=== PATIENT | male | born 1975 | race Caucasian/White ===

== ENCOUNTER 2018-12-28 08:59 | Observation (INO) | payer OTHER ==
[2018-12-28] MEDS ORDERED: Sodium Chloride 0.9% 1,000 ML IV ONE (09:06)
--- NOTE | 2018-12-28 09:33 | CT ---
Indication: numbness left side of face, arm and leg since yesterday. No history of stoke or TIA Technique: CT of the head without contrast. Coronal and sagittal reformats. Bone and soft tissue windows. Comparison: No prior studies available for comparison at this institution. Findings: There is a 2.4 x 1.3 cm focus of hypoattenuation in the right frontal centrum semiovale which is indeterminate differential considerations including ischemia or demyelinating insult (image 40 series 201). MRI without contrast is recommended for further evaluation No acute intracranial hemorrhage or extra-axial collection. No mass effect or midline shift. Normal cerebral volume. The ventricles are normal in size, shape and contour. Incidental left retrocerebellar arachnoid cyst. The orbital contents are normal. No calvarial fractures. No lytic or sclerotic osseous lesions within the calvarium or skull base. Scalp and other imaged soft tissue structures are normal. Mastoid air cells are clear. Paranasal sinuses are well aerated. Findings discussed with Dr. Vega at 9:30 am. Impression: 1. There is a 2.4 x 1.3 cm focus of hypoattenuation in the right frontal centrum semiovale which is indeterminate differential considerations including ischemia or demyelinating insult. MRI without contrast is recommended for further evaluation. 2. Incidental left retrocerebellar arachnoid cyst. Please note that all CT scans at this facility use dose modulation, iterative reconstruction, and/or weight-based dosing when appropriate to reduce radiation dose to as low as reasonably achievable. Dictated by Chapito Bruce MD @ Dec 28 2018 9:26AM Signed by Dr. Chapito Bruce @ Dec 28 2018 9:31AM
[2018-12-28] MEDS ORDERED: Aspirin 325 MG Tab PO ONE (09:40)
[2018-12-28 09:53] LABS: BLOOD UREA NITROGEN,BUN 24 mg/dL (7.0-18.0); CARBON DIOXIDE,CO2 23.2 mmol/L (21.0-32.0); CHLORIDE,CL 103 mmol/L (98-107); GLUCOSE RANDOM 158 mg/dL (74-106); POTASSIUM,K 3.8 mmol/L (3.5-5.1); SODIUM,NA 137 mmol/L (136-148)
--- NOTE | 2018-12-28 10:08 | EDM.PDOC ---
ED HPI GENERAL MEDICAL PROBLEM - General Chief Complaint: Neuro Symptoms/Deficits Stated Complaint: PT FEELS NUMBNESS ON LT SIDE OF CHEST Time Seen by Provider: 12/28/18 10:06 Source of Information: Reports: Patient - History of Present Illness INITIAL COMMENTS - FREE TEXT/NARRATIVE: HISTORY AND PHYSICAL: History of present illness: []Patient presents with left-sided numbness as well as weakness in the foot and lower extremity, plantar flexion is weak compared to right as well as his leg drifts somewhat laterally otherwise no other motor deficit appreciated sensory is intact however the patient feels numbness/paresthesia Symptoms began on Sunday he has no fever nausea vomiting chills sweats no chest pain shortness breath headache dizziness palpitation no bowel or urine symptoms Review of systems: As per history of present illness and below otherwise all systems reviewed and negative. Past medical history: As per history of present illness and as reviewed below otherwise noncontributory. Surgical history: As per history of present illness and as reviewed below otherwise noncontributory. Social history: No reported history of drug or alcohol abuse. Family history: As per history of present illness and as reviewed below otherwise noncontributory. Physical exam: HEENT: Atraumatic, normocephalic, pupils reactive, negative for conjunctival pallor or scleral icterus, mucous membranes moist, throat clear, neck supple, nontender, trachea midline. Lungs: Clear to auscultation, breath sounds equal bilaterally, chest nontender. Heart: S1S2, regular, negative for clicks, rubs, or JVD. Abdomen: Soft, nondistended, nontender. Negative for masses or hepatosplenomegaly. Negative for costovertebral tenderness. Pelvis: Stable nontender. Genitourinary: Deferred. Rectal: Deferred. Extremities: Atraumatic, negative for cords or calf pain. Neurovascular unremarkable. Neuro: Awake, alert, oriented. Cranial nerves II through XII unremarkable. Cerebellum unremarkable. Motor and sensory unremarkable throughout. Exam nonfocal. Diagnostics: [ P troponin INR UA EKG Chest [address] no contrast ] Therapeutics: [ will saline Aspirin Patient discussed in detail with Dr. Mancera, he will complete MRI and stroke workup ] Impression: [ right frontal lesion 2 cm x 1 cm ] Definitive disposition and diagnosis as appropriate pending reevaluation and review of above. Left Shoulder Pain Score (Numeric/FACES): 2 - Related Data Allergies Allergy/AdvReac Type Severity Reaction Status Date / Time No Known Allergies Allergy Verified 12/28/18 09:16 Home Meds: Home Meds Omeprazole 40 mg PO DAILY 12/28/18 [History] buPROPion [Wellbutrin] 450 mg PO DAILY 12/28/18 [History] traZODone HCl [Trazodone HCl] 100 mg PO BEDTIME 12/28/18 [History] Past Medical History Gastrointestinal History: Reports: GERD Psychiatric History: Reports: PTSD - Infectious Disease History Infectious Disease History: Reports: Chicken Pox - Past Surgical History HEENT Surgical History: Reports: Tonsillectomy Dermatological Surgical History: Reports: Other (See Below) Social & Family History - Family History Family Medical History: Noncontributory - Tobacco Use Smoking Status *Q: Current Every Day Smoker Years of Tobacco use: 24 Packs/Tins Daily: 1 - Caffeine Use Caffeine Use: Reports: Energy Drinks - Recreational Drug Use Recreational Drug Use: No ED ROS GENERAL - Review of Systems Review Of Systems: See Below ED EXAM, GENERAL - Physical Exam Exam: See Below Course - Vital Signs Last Recorded V/S: Last Vital Signs Temp 97.2 F 12/28/18 09:18 Pulse 69 12/28/18 09:45 Resp 16 12/28/18 09:45 BP 128/86 12/28/18 09:45 Pulse Ox 97 12/28/18 09:45 - Orders/Labs/Meds Orders: Active Orders 24 hr Category Date Time Status EKG Documentation Completion [RC] STAT Care 12/28/18 09:06 Active UA RFX YOVANI AND CULT IF INDIC [URIN] Stat Lab 12/28/18 09:06 Ordered Labs: Laboratory Tests 12/28/18 12/28/18 12/28/18 Range/Units 09:20 09:20 09:20 WBC 10.55 (4.0-11.0) K/uL RBC 5.47 (4.50-5.90) M/uL Hgb 16.9 (13.0-17.0) g/dL Hct 46.8 (38.0-50.0) % MCV 85.6 (80.0-98.0) fL MCH 30.9 (27.0-32.0) pg MCHC 36.1 (31.0-37.0) g/dL RDW Std Deviation 41.8 (28.0-62.0) fl RDW Coeff of Cheryl 13 (11.0-15.0) % Plt Count 241 (150-400) K/uL MPV 9.50 (7.40-12.00) fL Neut % (Auto) 67.3 (48.0-80.0) % Lymph % (Auto) 20.9 (16.0-40.0) % [place] % (Auto) 10.3 (0.0-15.0) % Eos % (Auto) 1.4 (0.0-7.0) % Baso % (Auto) 0.1 (0.0-1.5) % Neut # (Auto) 7.1 H (1.4-5.7) K/uL Lymph # (Auto) 2.2 (0.6-2.4) K/uL [place] # (Auto) 1.1 H (0.0-0.8) K/uL Eos # (Auto) 0.2 (0.0-0.7) K/uL Baso # (Auto) 0.0 (0.0-0.1) K/uL Nucleated RBC % 0.0 /100WBC Nucleated RBCs # 0 K/uL INR 0.95 Sodium 137 (136-148) mmol/L Potassium 3.8 (3.5-5.1) mmol/L Chloride 103 (98-107) mmol/L Carbon Dioxide 23.2 (21.0-32.0) mmol/L BUN 24 H (7.0-18.0) mg/dL Creatinine 0.9 (0.8-1.3) mg/dL Est Cr Clr Drug Dosing 112.72 mL/min Estimated GFR (MDRD) > 60.0 ml/min Glucose 158 H (74-106) mg/dL Calcium 8.0 L (8.5-10.1) mg/dL Total Bilirubin 0.4 (0.2-1.0) mg/dL AST 33 (15-37) IU/L ALT 60 (14-63) IU/L Alkaline Phosphatase 100 (46-116) U/L Troponin I < 0.050 (0.000-0.056) ng/mL Total Protein 7.4 (6.4-8.2) g/dL Albumin 3.6 (3.4-5.0) g/dL Globulin 3.8 (2.6-4.0) g/dL Albumin/Globulin Ratio 0.9 (0.9-1.6) Meds: Medications Discontinued Medications Generic Name Dose Route Start Last Admin Trade Name Calixto PRN Reason Stop Dose Admin Aspirin 325 mg 12/28/18 09:40 12/28/18 09:48 Aspirin PO 12/28/18 09:41 325 mg ONETIME ONE Administration Sodium Chloride 1,000 mls @ 999 mls/hr 12/28/18 09:06 12/28/18 09:28 Normal Saline IV 12/28/18 10:06 999 mls/hr STAT ONE Administration Departure - Departure Time of Disposition: 10:08 Disposition: Refer to Observation Condition: Fair Clinical Impression: Brain lesion - Discharge Information - My Orders Last 24 Hours: My Active Orders 12/28/18 09:06 EKG Documentation Completion [RC] STAT UA RFX YOVANI AND CULT IF INDIC [URIN] Stat - Assessment/Plan Last 24 Hours: My Active Orders 12/28/18 09:06 EKG Documentation Completion [RC] STAT UA RFX YOVANI AND CULT IF INDIC [URIN] Stat
[2018-12-28] MEDS ORDERED: oxyCODONE 5 MG Tab PO PRN (10:58)
[2018-12-28] MEDS ORDERED: Temazepam 15 MG Cap PO PRN (10:58)
[2018-12-28] MEDS ORDERED: Ondansetron 4 MG Tab.DIS PO PRN (10:58)
[2018-12-28] MEDS ORDERED: Docusate Sodium 100 MG Cap PO PRN (10:58)
--- NOTE | 2018-12-28 11:06 | PCM.HP.2 ---
H&P History of Present Illness - General Date of Service: 12/28/18 Admit Problem/Dx: Admission Diagnosis/Problem Admission Diagnosis/Problem Lesion of brain, weakness left side, numbness and tingling, admitted as a stroke code. Source of Information: Patient History Limitations: Reports: No Limitations - History of Present Illness Initial Comments - Free Text/Narative: The patient is a 43-year-old gentleman who recently came to the area from [place] for employment. The patient was admitted to the emergency department as a stroke code. On Sunday 5 days ago the patient started to develop numbness and tingling of his left hand with inability to firmly grasp objects stools. He also has some numbness, tingling of his left leg as well. The patient has been otherwise healthy and he does not take any medications chronically. The patient does smoke. The patient says that his symptoms have not resolved. He has denied any pain. He's had no specific aggravating or relieving factors. CT scan obtained today showed a 2.4 x 1.3 cm foci of hypoattenuation in the right frontal centrum and was recommended to have a MRI. Onset of Symptoms: Reports: Gradual Duration of Symptoms: Reports: Day(s):, Constant Location: Reports: Generalized Severity: Mild Improves with: Reports: None Worsens with: Reports: None Context: Reports: Travel Left Shoulder Pain Score (Numeric/FACES): 2 - Related Data Allergies/Adverse Reactions: Allergies Allergy/AdvReac Type Severity Reaction Status Date / Time No Known Allergies Allergy Verified 12/28/18 09:16 Home Medications: Home Meds Omeprazole 40 mg PO DAILY 12/28/18 [History] buPROPion [Wellbutrin] 450 mg PO DAILY 12/28/18 [History] traZODone HCl [Trazodone HCl] 100 mg PO BEDTIME 12/28/18 [History] Past Medical History HEENT History: Reports: None Cardiovascular History: Reports: None Respiratory History: Reports: None Gastrointestinal History: Reports: GERD Genitourinary History: Reports: None Musculoskeletal History: Reports: None Neurological History: Reports: None Psychiatric History: Reports: Anxiety, PTSD Endocrine/Metabolic History: Reports: None Hematologic History: Reports: None Immunologic History: Reports: None Oncologic (Cancer) History: Reports: None Dermatologic History: Reports: None - Infectious Disease History Infectious Disease History: Reports: Chicken Pox - Past Surgical History HEENT Surgical History: Reports: Tonsillectomy Dermatological Surgical History: Reports: Other (See Below) Social & Family History - Family History Family Medical History: Noncontributory - Tobacco Use Smoking Status *Q: Current Every Day Smoker Years of Tobacco use: 24 Packs/Tins Daily: 1 - Caffeine Use Caffeine Use: Reports: Energy Drinks - Recreational Drug Use Recreational Drug Use: No - Living Situation & Occupation Living situation: Reports: Occupation: Employed H&P Review of Systems - Review of Systems: Review Of Systems: See Below General: Reports: No Symptoms HEENT: Reports: No Symptoms Pulmonary: Reports: No Symptoms Cardiovascular: Reports: No Symptoms Gastrointestinal: Reports: No Symptoms Genitourinary: Reports: No Symptoms Musculoskeletal: Reports: No Symptoms Skin: Reports: No Symptoms Psychiatric: Reports: No Symptoms Neurological: Reports: Numbness, Paresthesia, Tingling, Difficulty Walking, Weakness. Denies: Change in Speech Hematologic/Lymphatic: Reports: No Symptoms Immunologic: Reports: No Symptoms Exam - Exam Exam: See Below - Vital Signs Vital Signs: Last Vital Signs Temp 36.2 C 12/28/18 09:18 Pulse 74 12/28/18 10:39 Resp 16 12/28/18 09:45 BP 125/70 12/28/18 10:39 Pulse Ox 98 12/28/18 10:39 Weight: 130.8 kg - Exam Quality Assessment: Supplemental Oxygen General: Alert, Oriented, Cooperative HEENT: Conjunctiva Clear, EACs Clear, EOMI, Mucosa Moist & [place], Pupils Equal, PERRLA Neck: Supple, Trachea Midline Lungs: Clear to Auscultation, Normal Respiratory Effort Cardiovascular: Regular Rate, Regular Rhythm GI/Abdominal Exam: Normal Bowel Sounds, Soft, No Distention Back Exam: Normal Inspection, Full Range of Motion Extremities: Normal Inspection, No Pedal Edema Skin: Warm, Dry, Intact Neurological: Cranial Nerves Intact, Reflexes Equal Bilateral, Normal Speech, Normal Tone. No: Strength Equal Bilateral (Weakness predominantly left side, left lower leg), Normal Gait Neuro Extensive - Mental Status: Alert, Oriented x3, Normal Mood/Affect, Memory Intact Psychiatric: Alert, Normal Affect, Normal Mood - Patient Data Lab Results Last 24 hrs: Laboratory Results - last 24 hr 12/28/18 12/28/18 12/28/18 Range/Units 09:20 09:20 09:20 WBC 10.55 (4.0-11.0) K/uL RBC 5.47 (4.50-5.90) M/uL Hgb 16.9 (13.0-17.0) g/dL Hct 46.8 (38.0-50.0) % MCV 85.6 (80.0-98.0) fL MCH 30.9 (27.0-32.0) pg MCHC 36.1 (31.0-37.0) g/dL RDW Std Deviation 41.8 (28.0-62.0) fl RDW Coeff of Cheryl 13 (11.0-15.0) % Plt Count 241 (150-400) K/uL MPV 9.50 (7.40-12.00) fL Neut % (Auto) 67.3 (48.0-80.0) % Lymph % (Auto) 20.9 (16.0-40.0) % [place] % (Auto) 10.3 (0.0-15.0) % Eos % (Auto) 1.4 (0.0-7.0) % Baso % (Auto) 0.1 (0.0-1.5) % Neut # (Auto) 7.1 H (1.4-5.7) K/uL Lymph # (Auto) 2.2 (0.6-2.4) K/uL [place] # (Auto) 1.1 H (0.0-0.8) K/uL Eos # (Auto) 0.2 (0.0-0.7) K/uL Baso # (Auto) 0.0 (0.0-0.1) K/uL Nucleated RBC % 0.0 /100WBC Nucleated RBCs # 0 K/uL INR 0.95 Sodium 137 (136-148) mmol/L Potassium 3.8 (3.5-5.1) mmol/L Chloride 103 (98-107) mmol/L Carbon Dioxide 23.2 (21.0-32.0) mmol/L BUN 24 H (7.0-18.0) mg/dL Creatinine 0.9 (0.8-1.3) mg/dL Est Cr Clr Drug Dosing 112.72 mL/min Estimated GFR (MDRD) > 60.0 ml/min Glucose 158 H (74-106) mg/dL Calcium 8.0 L (8.5-10.1) mg/dL Total Bilirubin 0.4 (0.2-1.0) mg/dL AST 33 (15-37) IU/L ALT 60 (14-63) IU/L Alkaline Phosphatase 100 (46-116) U/L Troponin I < 0.050 (0.000-0.056) ng/mL Total Protein 7.4 (6.4-8.2) g/dL Albumin 3.6 (3.4-5.0) g/dL Globulin 3.8 (2.6-4.0) g/dL Albumin/Globulin Ratio 0.9 (0.9-1.6) Triglycerides (0-200) mg/dL Cholesterol (50-200) mg/dL LDL Cholesterol, Calc (60-180) mg/dL VLDL Cholesterol (5-55) mg/dL HDL Cholesterol (40-60) mg/dL Cholesterol/HDL Ratio (3.3-6.0) Urine Color Urine Appearance Urine pH (5.0-8.0) Ur Specific [place] (1.001-1.035) Urine Protein (NEGATIVE) mg/dL Urine Glucose (UA) (NEGATIVE) mg/dL Urine Ketones (NEGATIVE) mg/dL Urine Occult Blood (NEGATIVE) Urine Nitrite (NEGATIVE) Urine Bilirubin (NEGATIVE) Urine Urobilinogen (<2.0) EU/dL Ur Leukocyte Esterase (NEGATIVE) 12/28/18 12/28/18 Range/Units 09:20 10:55 WBC (4.0-11.0) K/uL RBC (4.50-5.90) M/uL Hgb (13.0-17.0) g/dL Hct (38.0-50.0) % MCV (80.0-98.0) fL MCH (27.0-32.0) pg MCHC (31.0-37.0) g/dL RDW Std Deviation (28.0-62.0) fl RDW Coeff of Cheryl (11.0-15.0) % Plt Count (150-400) K/uL MPV (7.40-12.00) fL Neut % (Auto) (48.0-80.0) % Lymph % (Auto) (16.0-40.0) % [place] % (Auto) (0.0-15.0) % Eos % (Auto) (0.0-7.0) % Baso % (Auto) (0.0-1.5) % Neut # (Auto) (1.4-5.7) K/uL Lymph # (Auto) (0.6-2.4) K/uL [place] # (Auto) (0.0-0.8) K/uL Eos # (Auto) (0.0-0.7) K/uL Baso # (Auto) (0.0-0.1) K/uL Nucleated RBC % /100WBC Nucleated RBCs # K/uL INR Sodium (136-148) mmol/L Potassium (3.5-5.1) mmol/L Chloride (98-107) mmol/L Carbon Dioxide (21.0-32.0) mmol/L BUN (7.0-18.0) mg/dL Creatinine (0.8-1.3) mg/dL Est Cr Clr Drug Dosing mL/min Estimated GFR (MDRD) ml/min Glucose (74-106) mg/dL Calcium (8.5-10.1) mg/dL Total Bilirubin (0.2-1.0) mg/dL AST (15-37) IU/L ALT (14-63) IU/L Alkaline Phosphatase (46-116) U/L Troponin I (0.000-0.056) ng/mL Total Protein (6.4-8.2) g/dL Albumin (3.4-5.0) g/dL Globulin (2.6-4.0) g/dL Albumin/Globulin Ratio (0.9-1.6) Triglycerides 253 H (0-200) mg/dL Cholesterol 153 (50-200) mg/dL LDL Cholesterol, Calc 72 (60-180) mg/dL VLDL Cholesterol 50 (5-55) mg/dL HDL Cholesterol 30 L (40-60) mg/dL Cholesterol/HDL Ratio 5.1 (3.3-6.0) Urine Color YELLOW Urine Appearance CLEAR Urine pH 6.5 (5.0-8.0) Ur Specific [place] 1.015 (1.001-1.035) Urine Protein NEGATIVE (NEGATIVE) mg/dL Urine Glucose (UA) NEGATIVE (NEGATIVE) mg/dL Urine Ketones NEGATIVE (NEGATIVE) mg/dL Urine Occult Blood NEGATIVE (NEGATIVE) Urine Nitrite NEGATIVE (NEGATIVE) Urine Bilirubin NEGATIVE (NEGATIVE) Urine Urobilinogen 0.2 (<2.0) EU/dL Ur Leukocyte Esterase NEGATIVE (NEGATIVE) Result Diagrams: 12/28/18 09:20 12/28/18 09:20 - Problem List (1) Stroke due to embolism SNOMED Code(s): 886624410 ICD Code: I63.9 - CEREBRAL INFARCTION, UNSPECIFIED Status: Acute Priority : High Current Visit: Yes Qualifiers: Precerebral and cerebral artery: anterior cerebral artery Laterality of affected vessel: right Qualified Code(s): I63.421 - Cerebral infarction due to embolism of right anterior cerebral artery (2) Depression SNOMED Code(s): 10972245 ICD Code: F32.9 - MAJOR DEPRESSIVE DISORDER, SINGLE EPISODE, UNSPECIFIED Status: Chronic Priority: High Current Visit: Yes Qualifiers: Depression Type: major depressive disorder Major depression recurrence: recurrent Active/Remission status: in partial remission Qualified Code(s): F33.41 - Major depressive disorder, recurrent, in partial remission (3) PTSD (post-traumatic stress disorder) SNOMED Code(s): 54050337 ICD Code: F43.10 - POST-TRAUMATIC STRESS DISORDER, UNSPECIFIED Status: Chronic Priority: High Current Visit: Yes (4) Anxiety SNOMED Code(s): 08972327 ICD Code: F41.9 - ANXIETY DISORDER, UNSPECIFIED Status: Chronic Priority : High Current Visit: Yes (5) Morbid obesity with BMI of 40.0-44.9, adult SNOMED Code(s): 742007537, 71399996182915 ICD Code: E66.01 - MORBID (SEVERE) OBESITY DUE TO EXCESS CALORIES; Z68.41 - BODY MASS INDEX (BMI) 40.0-44.9, ADULT Status: Chronic Priority: High Current Visit: Yes (6) Hypertriglyceridemia SNOMED Code(s): 610626458 ICD Code: E78.1 - PURE HYPERGLYCERIDEMIA Status: Chronic Priority: High Current Visit: Yes (7) Brain lesion SNOMED Code(s): 781728368 ICD Code: G93.9 - DISORDER OF BRAIN, UNSPECIFIED Status: Chronic Priority : High Current Visit: Yes Problem List Initiated/Reviewed/Updated: Yes Orders Last 24hrs: Active Orders 24 hr Category Date Time Status Admission Status [Patient Status] [ADT] Stat ADT 12/28/18 10:09 Active Cardiac Monitoring [RC] CONTINUOUS Care 12/28/18 10:59 Ordered Oxygen Therapy [RC] PRN Care 12/28/18 10:59 Ordered Up With Assistance [RC] ASDIRECTED Care 12/28/18 10:58 Ordered VTE/DVT Education [RC] PER UNIT ROUTINE Care 12/28/18 10:59 Ordered Vital Signs [RC] Q4H Care 12/28/18 10:59 Ordered OT Evaluation and Treatment [CONS] Routine Cons 12/28/18 10:58 Ordered PT Evaluation and Treatment [CONS] Routine Cons 12/28/18 10:58 Ordered Heart Healthy Diet [DIET] Diet 12/28/18 Lunch Ordered Brain wo Cont [MR] Stat Exams 12/28/18 10:10 Ordered CBC WITH AUTO DIFF [HEME] AM Lab 12/29/18 05:11 Ordered COMPREHENSIVE METABOLIC PN,CMP [CHEM] AM Lab 12/29/18 05:11 Ordered Acetaminophen [Tylenol] Med 12/28/18 10:58 Ordered 650 mg PO Q4H PRN Docusate Sodium [Colace] Med 12/28/18 10:58 Ordered 100 mg PO BID PRN Heparin Sodium Med 12/28/18 11:00 Ordered 5,000 units SUBCUT Q8H Nicotine [Habitrol] Med 12/28/18 11:00 Ordered 14 mg TRDERM DAILY Omeprazole Med 12/29/18 09:00 Ordered 40 mg PO DAILY Ondansetron [Zofran ODT] Med 12/28/18 10:58 Ordered 4 mg PO Q4H PRN Temazepam [Restoril] Med 12/28/18 10:58 Ordered 15 mg PO BEDTIME PRN atorvaSTATin [Lipitor] Med 12/28/18 21:00 Ordered 20 mg PO BEDTIME buPROPion [Wellbutrin] Med 12/29/18 09:00 Ordered 450 mg PO DAILY oxyCODONE Med 12/28/18 10:58 Ordered 5 mg PO Q4H PRN traZODone HCl [Trazodone HCl] Med 12/28/18 21:00 Ordered 100 mg PO BEDTIME Resuscitation Status Routine Resus Stat 12/28/18 10:58 Ordered Medication Orders Acetaminophen (Tylenol) 650 mg PO Q4H PRN PRN Reason: Pain (Mild 1-3)/fever Atorvastatin Calcium (Lipitor) 20 mg PO BEDTIME [facility] Bupropion HCl (Wellbutrin) 450 mg PO DAILY [facility] Docusate Sodium (Colace) 100 mg PO BID PRN PRN Reason: Constipation Heparin Sodium (Porcine) (Heparin Sodium) 5,000 units SUBCUT Q8H [facility] Nicotine (Habitrol) 14 mg TRDERM DAILY [facility] Omeprazole (Omeprazole) 40 mg PO DAILY [facility] Ondansetron HCl (Zofran Odt) 4 mg PO Q4H PRN PRN Reason: nausea, able to take PO Oxycodone HCl (Oxycodone) 5 mg PO Q4H PRN PRN Reason: Pain (moderate 4-6) Trazodone HCl (Trazodone) 100 mg PO BEDTIME [facility] Assessment/Plan Comment:: The patient is a 43-year-old gentleman who had been admitted secondary to stroke as noted on the CT scan. MRI was obtained which showed hyperintense signal on T2 which was consistent with demyelination. This was in the right posterior frontal lobe predominantly for acute demyelinating disease. The patient had no intracranial hemorrhage or hydrocephalus. The patient had been admitted secondary to a stroke code and as a result of this the patient will be started on atorvastatin 20 mg by mouth at bedtime, physical therapy/ occupational therapy has been ordered. The patient will also be kept on antiplatelet drug. I had a discussion with the patient in the emergency department that this will likely require treatment more geared towards prevention. The patient will also have permissive hypertension to keep his systolic blood pressure between 150-160 mmHg. The patient will also have neuro checks every 4 hours. Troponins of also been ordered 2. The patient will have activity as tolerated. I've also kept patient on telemetry. The patient will be provided anticoagulation with the use of heparin. The patient also has a history of PTSD as well as anxiety and I have continued the patient on his Seroquel and trazodone. The patient will be evaluated in the morning and possibly discharged with recommendations to follow-up with his primary care physician in [place]. - Mortality Measure Prognosis:: Good
--- NOTE | 2018-12-28 11:50 | MR ---
Indication: Hypodense lesion right frontal lobe on CT. Technique: Noncontrast sagittal T1, axial FLAIR, T2 turbo spine echo, and diffusion weighted images. Supplemental post contrast T1 weighted axial and coronal sequences are provided after administration of gadolinium-based IV contrast. Comparison: CT 12/1918 Findings: There is a 1.8 x 1.7 cm focus of concentric T2 prolongation and diffusion restriction in the right frontal periventricular/subcortical white matter that abuts the right precentral gyrus subcortical white matter. This demonstrates incomplete rim of enhancement no midline shift. No hydrocephalus. A few small discrete foci of T2 prolongation are present in the subcortical white matter, nonspecific but most commonly noted in the setting of migraines, hypertension, diabetes, or collagen vascular disease. Expected intracranial vascular flow voids are preserved. The orbits, paranasal sinuses, mastoid air cells are clear. Incidental small left retrocerebellar arachnoid cyst. Impression: 1. There is a 1.8 x 1.7 cm focus of concentric T2 prolongation and diffusion restriction in the right frontal periventricular/subcortical white matter that abuts the right precentral gyrus subcortical white matter. This demonstrates incomplete rim of enhancement and is most consistent for demyelinating lesion such as multiple sclerosis. The noncontrast appearance suggests Balo`s concentric sclerosis. 2. A few small discrete foci of T2 prolongation are present in the subcortical white matter, nonspecific but most commonly noted in the setting of migraines, hypertension, diabetes, or collagen vascular disease. 3. Incidental small left retrocerebellar arachnoid cyst Dictated by Chapito Bruce MD @ Dec 28 2018 12:11PM Signed by Dr. Chapito Bruce @ Dec 28 2018 1:31PM
[2018-12-28] MEDS: Heparin Sodium 5,000 Units/ML Vial SUBCUT SCH ×2 (11:57→18:07)
[2018-12-28] MEDS: Nicotine 14 MG/24 Hr Patch TRDERM SCH (11:57)
[2018-12-28] MEDS ORDERED: Gadobenate Dimeglumine 529 MG/ML 20 ML SDV IVPUSH STA (12:41)
[2018-12-28] MEDS: Acetaminophen 325 MG Tab PO PRN (18:08)
[2018-12-28] MEDS ORDERED: atorvaSTATin 20 MG Tab PO SCH (21:00)
[2018-12-28] MEDS ORDERED: traZODone 50 MG Tab PO SCH (21:00)
[2018-12-29] MEDS: Heparin Sodium 5,000 Units/ML Vial SUBCUT SCH ×2 (03:54→10:06)
[2018-12-29] MEDS: Acetaminophen 325 MG Tab PO PRN ×2 (03:55→08:30)
[2018-12-29 06:48] LABS: BLOOD UREA NITROGEN,BUN 17 mg/dL (7.0-18.0); CARBON DIOXIDE,CO2 24.1 mmol/L (21.0-32.0); CHLORIDE,CL 105 mmol/L (98-107); GLUCOSE RANDOM 93 mg/dL (74-106); POTASSIUM,K 3.8 mmol/L (3.5-5.1); SODIUM,NA 137 mmol/L (136-148)
--- NOTE | 2018-12-29 08:07 | PCM.DCSUM1 ---
Discharge Summary - Discharge Data Discharge Date: 12/29/18 Discharge Disposition: Home, Self-Care 01 Condition: Good - Referral to Home Health Primary Care Physician: PCP None - Discharge Diagnosis/Problem(s) (1) Stroke due to embolism SNOMED Code(s): 340156211 ICD Code: I63.9 - CEREBRAL INFARCTION, UNSPECIFIED Status: Ruled-out Priority: High Current Visit: Yes Problem Details: The patient has a demyelinating disease and no stroke. Qualifiers: Precerebral and cerebral artery: anterior cerebral artery Laterality of affected vessel: right Qualified Code(s): I63.421 - Cerebral infarction due to embolism of right anterior cerebral artery (2) Depression SNOMED Code(s): 44560182 ICD Code: F32.9 - MAJOR DEPRESSIVE DISORDER, SINGLE EPISODE, UNSPECIFIED Status: Chronic Priority: High Current Visit: Yes Qualifiers: Depression Type: major depressive disorder Major depression recurrence: recurrent Active/Remission status: in partial remission Qualified Code(s): F33.41 - Major depressive disorder, recurrent, in partial remission (3) PTSD (post-traumatic stress disorder) SNOMED Code(s): 63139754 ICD Code: F43.10 - POST-TRAUMATIC STRESS DISORDER, UNSPECIFIED Status: Chronic Priority: High Current Visit: Yes (4) Anxiety SNOMED Code(s): 27363447 ICD Code: F41.9 - ANXIETY DISORDER, UNSPECIFIED Status: Chronic Priority : High Current Visit: Yes (5) Morbid obesity with BMI of 40.0-44.9, adult SNOMED Code(s): 817504218, 95795069201409 ICD Code: E66.01 - MORBID (SEVERE) OBESITY DUE TO EXCESS CALORIES; Z68.41 - BODY MASS INDEX (BMI) 40.0-44.9, ADULT Status: Chronic Priority: High Current Visit: Yes (6) Hypertriglyceridemia SNOMED Code(s): 153401256 ICD Code: E78.1 - PURE HYPERGLYCERIDEMIA Status: Chronic Priority: High Current Visit: Yes (7) Brain lesion SNOMED Code(s): 096787795 ICD Code: G93.9 - DISORDER OF BRAIN, UNSPECIFIED Status: Chronic Priority : High Current Visit: Yes - Patient Summary/Data Consults: Consultations 12/28/18 10:58 OT Evaluation and Treatment [CONS] Routine PT Evaluation and Treatment [CONS] Routine Hospital Course: The patient is a 43-year-old gentleman who recently came to the area from [place] for employment. The patient was admitted to the emergency department as a stroke code. On Sunday 5 days ago the patient started to develop numbness and tingling of his left hand with inability to firmly grasp objects stools. He also has some numbness, tingling of his left leg as well. The patient has been otherwise healthy and he does not take any medications chronically. The patient is here in the area for work and is having a primary care physician appointment and his hometown in [place]. The patient had a CT examination of his head and MRI of his brain as well.The patient's CT examination which was completed on December 28, 2018 showed a 2.4 x 1.3 cm foci of hypoattenuation in the right frontal central semiovale and an MRI was recommended. A follow-up MRI was also obtained on December 28, 2018 which did not show any signs of the stroke however , there was an area of 1.8 x 1.7 concentric area of demyelinization in the area of the previously noted lesion on the CT scan. The patient's MRI was otherwise normal. The patient had continued to improve through his short course of hospitalization. The patient had been tolerating his diet. The patient also had been started on IV steroids, Solu-Medrol 125 mg IV 1 dose and was also placed on 40 mg of prednisone by mouth daily for 7 days. The patient was prescribed this at a concern for multiple sclerosis. The patient also had been given copies of his MRI and CT examination and he has been recommended to follow-up with neurologist at his home in [place]. The patient will likely need to have lumbar puncture for oligoclonal bands to exclude MS. The patient has been hemodynamically stable. The patient also has been recommended to continue with aspirin 81 mg by mouth daily as well as atorvastatin 20 mg by mouth daily at bedtime. The patient has been recommended to continue with his diet as tolerated. He is also to have activity as tolerated. The patient has been hemodynamically stable and he has been released from acute hospitalization with the recommendations listed above. - Patient Instructions Diet: Heart Healthy Diet Activity: As Tolerated Notify Provider of: Fever, Increased Pain - Discharge Plan *PRESCRIPTION DRUG MONITORING PROGRAM REVIEWED*: No *COPY OF PRESCRIPTION DRUG MONITORING REPORT IN PATIENT ANNY: No Prescriptions/Med Rec: Aspirin [[place] Aspirin] 81 mg PO DAILY #30 tab.chew atorvaSTATin [Lipitor] 20 mg PO BEDTIME #30 tablet predniSONE [Prednisone] 40 mg PO DAILY #5 tablet Home Medications: Home Meds Omeprazole 40 mg PO DAILY 12/28/18 [History] buPROPion [Wellbutrin] 450 mg PO DAILY 12/28/18 [History] traZODone HCl [Trazodone HCl] 100 mg PO BEDTIME 12/28/18 [History] Aspirin [[place] Aspirin] 81 mg PO DAILY #30 tab.chew 12/29/18 [Rx] atorvaSTATin [Lipitor] 20 mg PO BEDTIME #30 tablet 12/29/18 [Rx] predniSONE [Prednisone] 40 mg PO DAILY #5 tablet 12/29/18 [Rx] Oxygen Therapy Mode: Room Air Patient Handouts: Weakness, [id number], Atorvastatin tablets, Aspirin, ASA oral tablets, Prednisone tablets, Paresthesia, [id number] - Discharge Summary/Plan Comment DC Time >30 min.: Yes - General Info Date of Service: 12/29/18 Admission Dx/Problem (Free Text: Admission Diagnosis/Problem Admission Diagnosis/Problem Lesion of brain, weakness left side, numbness and tingling, admitted as a stroke code. Subjective Update: The patient is feeling better today. He wants to follow-up with his physician at home. Functional Status: Reports: Pain Controlled - Review of Systems General: Reports: No Symptoms HEENT: Reports: No Symptoms Pulmonary: Reports: No Symptoms Cardiovascular: Reports: No Symptoms Gastrointestinal: Reports: No Symptoms Genitourinary: Reports: No Symptoms Musculoskeletal: Reports: No Symptoms Skin: Reports: No Symptoms Neurological: Reports: Pre-Existing Deficit Psychiatric: Reports: No Symptoms - Patient Data Vitals - Most Recent: Last Vital Signs Temp 35.9 C 12/29/18 03:51 Pulse 72 12/29/18 03:51 Resp 18 12/29/18 03:51 BP 137/53 L 12/29/18 03:51 Pulse Ox 95 12/29/18 03:51 Weight - Most Recent: 130.8 kg I&O - Last 24 hours: Intake & Output 12/28/18 12/29/18 12/29/18 22:59 06:59 14:59 Intake Total 350 650 Output Total 820 1375 Balance -470 -725 Lab Results - Last 24 hrs: Laboratory Results - last 24 hr 12/28/18 12/28/18 12/28/18 Range/Units 09:20 09:20 09:20 WBC 10.55 (4.0-11.0) K/uL RBC 5.47 (4.50-5.90) M/uL Hgb 16.9 (13.0-17.0) g/dL Hct 46.8 (38.0-50.0) % MCV 85.6 (80.0-98.0) fL MCH 30.9 (27.0-32.0) pg MCHC 36.1 (31.0-37.0) g/dL RDW Std Deviation 41.8 (28.0-62.0) fl RDW Coeff of Cheryl 13 (11.0-15.0) % Plt Count 241 (150-400) K/uL MPV 9.50 (7.40-12.00) fL Neut % (Auto) 67.3 (48.0-80.0) % Lymph % (Auto) 20.9 (16.0-40.0) % Wheeler % (Auto) 10.3 (0.0-15.0) % Eos % (Auto) 1.4 (0.0-7.0) % Baso % (Auto) 0.1 (0.0-1.5) % Neut # (Auto) 7.1 H (1.4-5.7) K/uL Lymph # (Auto) 2.2 (0.6-2.4) K/uL Wheeler # (Auto) 1.1 H (0.0-0.8) K/uL Eos # (Auto) 0.2 (0.0-0.7) K/uL Baso # (Auto) 0.0 (0.0-0.1) K/uL Nucleated RBC % 0.0 /100WBC Nucleated RBCs # 0 K/uL INR 0.95 Sodium 137 (136-148) mmol/L Potassium 3.8 (3.5-5.1) mmol/L Chloride 103 (98-107) mmol/L Carbon Dioxide 23.2 (21.0-32.0) mmol/L BUN 24 H (7.0-18.0) mg/dL Creatinine 0.9 (0.8-1.3) mg/dL Est Cr Clr Drug Dosing 112.72 mL/min Estimated GFR (MDRD) > 60.0 ml/min Glucose 158 H (74-106) mg/dL Calcium 8.0 L (8.5-10.1) mg/dL Total Bilirubin 0.4 (0.2-1.0) mg/dL AST 33 (15-37) IU/L ALT 60 (14-63) IU/L Alkaline Phosphatase 100 (46-116) U/L Troponin I < 0.050 (0.000-0.056) ng/mL Total Protein 7.4 (6.4-8.2) g/dL Albumin 3.6 (3.4-5.0) g/dL Globulin 3.8 (2.6-4.0) g/dL Albumin/Globulin Ratio 0.9 (0.9-1.6) Triglycerides (0-200) mg/dL Cholesterol (50-200) mg/dL LDL Cholesterol, Calc (60-180) mg/dL VLDL Cholesterol (5-55) mg/dL HDL Cholesterol (40-60) mg/dL Cholesterol/HDL Ratio (3.3-6.0) Urine Color Urine Appearance Urine pH (5.0-8.0) Ur Specific [place] (1.001-1.035) Urine Protein (NEGATIVE) mg/dL Urine Glucose (UA) (NEGATIVE) mg/dL Urine Ketones (NEGATIVE) mg/dL Urine Occult Blood (NEGATIVE) Urine Nitrite (NEGATIVE) Urine Bilirubin (NEGATIVE) Urine Urobilinogen (<2.0) EU/dL Ur Leukocyte Esterase (NEGATIVE) 12/28/18 12/28/18 12/28/18 Range/Units 09:20 10:55 13:09 WBC (4.0-11.0) K/uL RBC (4.50-5.90) M/uL Hgb (13.0-17.0) g/dL Hct (38.0-50.0) % MCV (80.0-98.0) fL MCH (27.0-32.0) pg MCHC (31.0-37.0) g/dL RDW Std Deviation (28.0-62.0) fl RDW Coeff of Cheryl (11.0-15.0) % Plt Count (150-400) K/uL MPV (7.40-12.00) fL Neut % (Auto) (48.0-80.0) % Lymph % (Auto) (16.0-40.0) % Wheeler % (Auto) (0.0-15.0) % Eos % (Auto) (0.0-7.0) % Baso % (Auto) (0.0-1.5) % Neut # (Auto) (1.4-5.7) K/uL Lymph # (Auto) (0.6-2.4) K/uL Wheeler # (Auto) (0.0-0.8) K/uL Eos # (Auto) (0.0-0.7) K/uL Baso # (Auto) (0.0-0.1) K/uL Nucleated RBC % /100WBC Nucleated RBCs # K/uL INR Sodium (136-148) mmol/L Potassium (3.5-5.1) mmol/L Chloride (98-107) mmol/L Carbon Dioxide (21.0-32.0) mmol/L BUN (7.0-18.0) mg/dL Creatinine (0.8-1.3) mg/dL Est Cr Clr Drug Dosing mL/min Estimated GFR (MDRD) ml/min Glucose (74-106) mg/dL Calcium (8.5-10.1) mg/dL Total Bilirubin (0.2-1.0) mg/dL AST (15-37) IU/L ALT (14-63) IU/L Alkaline Phosphatase (46-116) U/L Troponin I < 0.050 (0.000-0.056) ng/mL Total Protein (6.4-8.2) g/dL Albumin (3.4-5.0) g/dL Globulin (2.6-4.0) g/dL Albumin/Globulin Ratio (0.9-1.6) Triglycerides 253 H (0-200) mg/dL Cholesterol 153 (50-200) mg/dL LDL Cholesterol, Calc 72 (60-180) mg/dL VLDL Cholesterol 50 (5-55) mg/dL HDL Cholesterol 30 L (40-60) mg/dL Cholesterol/HDL Ratio 5.1 (3.3-6.0) Urine Color YELLOW Urine Appearance CLEAR Urine pH 6.5 (5.0-8.0) Ur Specific [place] 1.015 (1.001-1.035) Urine Protein NEGATIVE (NEGATIVE) mg/dL Urine Glucose (UA) NEGATIVE (NEGATIVE) mg/dL Urine Ketones NEGATIVE (NEGATIVE) mg/dL Urine Occult Blood NEGATIVE (NEGATIVE) Urine Nitrite NEGATIVE (NEGATIVE) Urine Bilirubin NEGATIVE (NEGATIVE) Urine Urobilinogen 0.2 (<2.0) EU/dL Ur Leukocyte Esterase NEGATIVE (NEGATIVE) 12/28/18 12/29/18 12/29/18 Range/Units 19:05 06:05 06:05 WBC 9.55 (4.0-11.0) K/uL RBC 5.58 (4.50-5.90) M/uL Hgb 17.1 H (13.0-17.0) g/dL Hct 48.0 (38.0-50.0) % MCV 86.0 (80.0-98.0) fL MCH 30.6 (27.0-32.0) pg MCHC 35.6 (31.0-37.0) g/dL RDW Std Deviation 42.3 (28.0-62.0) fl RDW Coeff of Cheryl 14 (11.0-15.0) % Plt Count 239 (150-400) K/uL MPV 9.40 (7.40-12.00) fL Neut % (Auto) 65.4 (48.0-80.0) % Lymph % (Auto) 20.5 (16.0-40.0) % Wheeler % (Auto) 12.5 (0.0-15.0) % Eos % (Auto) 1.5 (0.0-7.0) % Baso % (Auto) 0.1 (0.0-1.5) % Neut # (Auto) 6.3 H (1.4-5.7) K/uL Lymph # (Auto) 2.0 (0.6-2.4) K/uL Wheeler # (Auto) 1.2 H (0.0-0.8) K/uL Eos # (Auto) 0.1 (0.0-0.7) K/uL Baso # (Auto) 0.0 (0.0-0.1) K/uL Nucleated RBC % 0.0 /100WBC Nucleated RBCs # 0 K/uL INR Sodium 137 (136-148) mmol/L Potassium 3.8 (3.5-5.1) mmol/L Chloride 105 (98-107) mmol/L Carbon Dioxide 24.1 (21.0-32.0) mmol/L BUN 17 (7.0-18.0) mg/dL Creatinine 0.9 (0.8-1.3) mg/dL Est Cr Clr Drug Dosing 114.44 mL/min Estimated GFR (MDRD) > 60.0 ml/min Glucose 93 (74-106) mg/dL Calcium 8.0 L (8.5-10.1) mg/dL Total Bilirubin 0.5 (0.2-1.0) mg/dL AST 25 (15-37) IU/L ALT 52 (14-63) IU/L Alkaline Phosphatase 86 (46-116) U/L Troponin I < 0.050 (0.000-0.056) ng/mL Total Protein 7.2 (6.4-8.2) g/dL Albumin 3.5 (3.4-5.0) g/dL Globulin 3.7 (2.6-4.0) g/dL Albumin/Globulin Ratio 0.9 (0.9-1.6) Triglycerides (0-200) mg/dL Cholesterol (50-200) mg/dL LDL Cholesterol, Calc (60-180) mg/dL VLDL Cholesterol (5-55) mg/dL HDL Cholesterol (40-60) mg/dL Cholesterol/HDL Ratio (3.3-6.0) Urine Color Urine Appearance Urine pH (5.0-8.0) Ur Specific [place] (1.001-1.035) Urine Protein (NEGATIVE) mg/dL Urine Glucose (UA) (NEGATIVE) mg/dL Urine Ketones (NEGATIVE) mg/dL Urine Occult Blood (NEGATIVE) Urine Nitrite (NEGATIVE) Urine Bilirubin (NEGATIVE) Urine Urobilinogen (<2.0) EU/dL Ur Leukocyte Esterase (NEGATIVE) Med Orders - Current: Current Medications Acetaminophen (Tylenol) 650 mg PO Q4H PRN PRN Reason: Pain (Mild 1-3)/fever Last Admin: 12/29/18 03:55 Dose: 650 mg Aspirin (Aspirin) 81 mg PO DAILY [facility] Atorvastatin Calcium (Lipitor) 20 mg PO BEDTIME [facility] Last Admin: 12/28/18 20:59 Dose: 20 mg Bupropion HCl (Wellbutrin) 450 mg PO DAILY [facility] Docusate Sodium (Colace) 100 mg PO BID PRN PRN Reason: Constipation Heparin Sodium (Porcine) (Heparin Sodium) 5,000 units SUBCUT Q8H [facility] Last Admin: 12/29/18 03:54 Dose: 5,000 units Nicotine (Habitrol) 14 mg TRDERM DAILY [facility] Last Admin: 12/28/18 11:57 Dose: 14 mg Omeprazole (Omeprazole) 40 mg PO DAILY [facility] Ondansetron HCl (Zofran Odt) 4 mg PO Q4H PRN PRN Reason: nausea, able to take PO Oxycodone HCl (Oxycodone) 5 mg PO Q4H PRN PRN Reason: Pain (moderate 4-6) Temazepam (Restoril) 15 mg PO BEDTIME PRN PRN Reason: Sleep Trazodone HCl (Trazodone) 100 mg PO BEDTIME [facility] Last Admin: 12/28/18 20:59 Dose: 100 mg Discontinued Medications Aspirin (Aspirin) 325 mg PO ONETIME ONE Stop: 12/28/18 09:41 Last Admin: 12/28/18 09:48 Dose: 325 mg Gadobenate Dimeglumine (Multihance) 20 ml IVPUSH ONETIME STA Stop: 12/28/18 12:42 Last Admin: 12/28/18 13:07 Dose: Not Given Sodium Chloride (Normal Saline) 1,000 mls @ 999 mls/hr IV STAT ONE Stop: 12/28/18 10:06 Last Admin: 12/28/18 09:28 Dose: 999 mls/hr - Exam Quality Assessment: Denies: Supplemental Oxygen General: Reports: Alert, Oriented, Cooperative, No Acute Distress HEENT: Reports: Pupils Equal, Pupils Reactive, EOMI, Mucous Membr. Moist/[place]ing [place] Neck: Reports: Supple, Trachea Midline Lungs: Reports: Clear to Auscultation, Normal Respiratory Effort Cardiovascular: Reports: Regular Rate, Regular Rhythm, No Murmurs GI/Abdominal Exam: Normal Bowel Sounds, Soft, No Distention Back Exam: Reports: Normal Inspection, Full Range of Motion Extremities: Normal Inspection, No Pedal Edema Skin: Reports: Warm, Dry, Intact Neurological: Reports: No New Focal Deficit. Denies: Strength Equal Bilateral ( Weakness left lower extremity) Psy/Mental Status: Reports: Alert, Normal Affect, Normal Mood
[2018-12-29] MEDS: Nicotine 14 MG/24 Hr Patch TRDERM SCH (08:29)
[2018-12-29] MEDS ORDERED: methylPREDNISolone Sodium Succinate 125 MG/2 ML SDV IVPUSH ONE (08:53)
[2018-12-29] MEDS ORDERED: Aspirin 81 MG Tab.Chew PO SCH (09:00)
[2018-12-29] MEDS ORDERED: buPROPion 100 MG Tab PO SCH (09:00)
[2018-12-29] MEDS ORDERED: Omeprazole 20 MG Cap.CR PO SCH (09:00)
--- NOTE | 2018-12-31 15:26 | MR ---
Indication: Hypodense lesion right frontal lobe on CT. Technique: Noncontrast sagittal T1, axial FLAIR, T2 turbo spine echo, and diffusion weighted images. Supplemental post contrast T1 weighted axial and coronal sequences are provided after administration of gadolinium-based IV contrast. Comparison: CT 12/1918 Findings: There is a 1.8 x 1.7 cm focus of concentric T2 prolongation and diffusion restriction in the right frontal periventricular/subcortical white matter that abuts the right precentral gyrus subcortical white matter. This demonstrates incomplete rim of enhancement no midline shift. No hydrocephalus. A few small discrete foci of T2 prolongation are present in the subcortical white matter, nonspecific but most commonly noted in the setting of migraines, hypertension, diabetes, or collagen vascular disease. Expected intracranial vascular flow voids are preserved. The orbits, paranasal sinuses, mastoid air cells are clear. Incidental small left retrocerebellar arachnoid cyst. Impression: 1. There is a 1.8 x 1.7 cm focus of concentric T2 prolongation and diffusion restriction in the right frontal periventricular/subcortical white matter that abuts the right precentral gyrus subcortical white matter. This demonstrates incomplete rim of enhancement and is most consistent for demyelinating lesion such as multiple sclerosis. The noncontrast appearance suggests Balo`s concentric sclerosis. 2. A few small discrete foci of T2 prolongation are present in the subcortical white matter, nonspecific but most commonly noted in the setting of migraines, hypertension, diabetes, or collagen vascular disease. 3. Incidental small left retrocerebellar arachnoid cyst Dictated by Chapito Bruce MD @ Dec 28 2018 12:11PM Signed by: Chapito Bruce MD @12/28/2018 1:31:47 PM (Electronic Signature) MTDD
== END 2018-12-29 10:55 | disposition home or self-care (01) ==
LOC: MW.ED 08:59 → MW.MS 10:24
PROVIDERS: ADMIT Internal Medicine; ATTEND Internal Medicine
DX: I63.421 Cerebral infarction due to embolism of right anterior cerebral artery (principal); F33.41 Major depressive disorder, recurrent, in partial remission; F43.10 Post-traumatic stress disorder, unspecified; F41.9 Anxiety disorder, unspecified; E78.1 Pure hyperglyceridemia; G93.9 Disorder of brain, unspecified; K21.9 Gastro-esophageal reflux disease without esophagitis; F17.210 Nicotine dependence, cigarettes, uncomplicated; E66.01 Morbid (severe) obesity due to excess calories; Z68.41 Body mass index [BMI] 40.0-44.9, adult
CPT/HCPCS: 36415; 70450; 70551; 70552; 80053; 80061; 81003; 84484; 85025; 85610; 93005; 96360; 99285; A9270; J1644; J2930; J7040; 96361; 96372; 96374; G0378